=== PATIENT | female | born 1970 | race Two or more races ===

== ENCOUNTER 2018-06-24 14:12 | Emergency (ER) | payer SELFPAY ==
[~2018-06-24] VITALS: Ht 165.1 cm; Wt 94.6 kg
[2018-06-24 14:41] VITALS: BP 136/91
== END 2018-06-24 14:51 | disposition left against medical advice (07) ==
LOC: ED 14:45
DX: M79.672 Pain in left foot (principal)
CPT/HCPCS: 99281